=== PATIENT | female | born 1990 | race American Indian/Alaskan Native ===

== ENCOUNTER 2018-04-29 00:28 | Emergency (ER) | payer OTHER ==
[2018-04-29 00:42] VITALS: BP 125/80
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
[2018-04-29 02:40] LABS: HCG Qualitative,Urine Negative (Negative)
[2018-04-29] MEDS ORDERED: NORCO 5/325 PO ONE (02:45)
[2018-04-29] MEDS ORDERED: FLEXERIL PO ONE (02:45)
[2018-04-29] MEDS ORDERED: PHENERGAN PO ONE (02:46)
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
== END 2018-04-29 05:13 | disposition home or self-care (01) ==
LOC: ED 00:28
DX: S39.012A Strain of muscle, fascia and tendon of lower back, initial encounter (principal); S10.93XA Contusion of unspecified part of neck, initial encounter; S80.02XA Contusion of left knee, initial encounter; S80.01XA Contusion of right knee, initial encounter; S60.212A Contusion of left wrist, initial encounter; S60.211A Contusion of right wrist, initial encounter; Z88.6 Allergy status to analgesic agent; V89.2XXA Person injured in unspecified motor-vehicle accident, traffic, initial encounter; Y93.89 Activity, other specified; Y99.8 Other external cause status; Y92.410 Unspecified street and highway as the place of occurrence of the external cause
CPT/HCPCS: 81025; Q0169